=== PATIENT | female | born 1980 | race Hispanic/Latino ===

== ENCOUNTER 2019-05-27 23:55 | Emergency (ER) | payer SELFPAY ==
[2019-05-28 00:32] VITALS: BP 154/89
== END 2019-05-28 00:30 | disposition left against medical advice (07) ==
LOC: ED 23:55
DX: R22.2 Localized swelling, mass and lump, trunk (principal); Z53.21 Procedure and treatment not carried out due to patient leaving prior to being seen by health care provider